=== PATIENT | male | born 1955 | race Caucasian/White ===

== ENCOUNTER 2019-08-28 22:09 | Emergency (ER) | payer BC ==
[2019-08-28] MEDS ORDERED: Sodium Chloride 0.9% 10 ML Syringe FLUSH PRN (23:53)
--- NOTE | 2019-08-28 23:54 | EDM.PDOC ---
ED HPI GENERAL MEDICAL PROBLEM - General Chief Complaint: Cardiovascular Problem Stated Complaint: A FIB Time Seen by Provider: 08/28/19 23:25 Source of Information: Reports: Patient History Limitations: Reports: No Limitations - History of Present Illness INITIAL COMMENTS - FREE TEXT/NARRATIVE: 63-year-old male who reports that at approximately 10 PM tonight he was walking to the hotel room to change clothes and he felt a slight discomfort in his left chest and a feeling that "something was not right" and a feeling of irregular and fast heartbeat. He rated the discomfort in his chest as a 4/10. It was a tight kind of discomfort and a feeling of irregular heartbeats. He had no neck pain, jaw pain or arm pain. He had no nausea or vomiting. He had no difficulty breathing. He has had this happen 2 other times in the past with the first episode being in November 2018 and the second episode being 2 weeks ago. Each time he was in atrial fibrillation and he reports that he was given medicine in his IV that caused him to "go back into a normal rhythm". He apparently is followed through [facility] in [facility] and he was for the [facility] in [place] after the first episode and had a fairly complete workup that was essentially negative. He was on Eliquis for about a 2 month period and was taken off of this medication because he did not go into atrial fibrillation during that time. About 2 weeks ago he [place] and it occurred. He is on no new medication. He cannot think of anything that may have caused this tonight. There are no other associated signs or symptoms. There are no other modifying factors. Onset: Today (10 PM) Duration: Constant Location: Reports: Chest Quality: Reports: Pressure, Other (Tightness) Severity: Mild Improves with: Reports: None Worsens with: Reports: None Context: Reports: Other (As above) Associated Symptoms: Reports: No Other Symptoms (Except as described above) Treatments [employer]: Reports: Other (see below) (Nothing) - Related Data Allergies Allergy/AdvReac Type Severity Reaction Status Date / Time No Known Allergies Allergy Verified 08/28/19 22:36 Home Meds: Home Meds Aspirin 1 tab PO DAILY 08/28/19 [History] Losartan/Hydrochlorothiazide [Losartan-HCTZ 100-25 MG] 1 tab PO DAILY 08/28/19 [ History] Metoprolol Succinate [Toprol XL 100mg] 100 mg PO DAILY 08/28/19 [History] Nilotinib HCl [Tasigna] 2 tab PO BID 08/28/19 [History] amLODIPine/atorvaSTATin [Amlodipine-Atorvast 5-10 mg] 5 mg PO DAILY 08/28/19 [ History] Potassium Chloride [K-Tab ER] 20 meq PO BID 3 Days #6 tablet.er 08/29/19 [Rx] Past Medical History Cardiovascular History: Reports: Arrhythmia (Paroxysmal atrial fibrillation), Hypertension Genitourinary History: Reports: Renal Calculus Oncologic (Cancer) History: Reports: Leukemia (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 the past 6 years.) - Past Surgical History GI Surgical History: Reports: Hernia, Inguinal (Left) Social & Family History - Tobacco Use Smoking Status *Q: Never Smoker Second Hand Smoke Exposure: No - Caffeine Use Caffeine Use: Reports: None - Alcohol Use Alcohol Use History: Yes Alcohol Use Frequency: Rarely - Recreational Drug Use Recreational Drug Use: No - Living Situation & Occupation Living situation: Reports: , with Family Occupation: Employed (He is a FIELD MECHANIC/SITE LEAD.) Social History Comment: He lives in [facility] GENERAL - Review of Systems Review Of Systems: See Below Constitutional: Reports: No Symptoms HEENT: Reports: No Symptoms Respiratory: Reports: No Symptoms Cardiovascular: Reports: Chest Pain, Other (Irregular heartbeat and fast heartbeat) Endocrine: Reports: No Symptoms GI/Abdominal: Reports: No Symptoms : Reports: No Symptoms Musculoskeletal: Reports: No Symptoms Skin: Reports: No Symptoms Neurological: Reports: No Symptoms Hematologic/Lymphatic: Reports: No Symptoms Immunologic: Reports: No Symptoms ED EXAM, GENERAL - Physical Exam Exam: See Below Exam Limited By: No Limitations General Appearance: Alert, WD/WN, Anxious (Slightly), Mild Distress Eye Exam: Bilateral Eye: EOMI, Normal Inspection Ears: Normal External Exam, Hearing Grossly Normal Ear Exam: Bilateral Ear: Auricle Normal Nose: Normal Inspection, Normal Mucosa, No Blood Throat/Mouth: Normal Inspection, Normal Lips, Normal Oropharynx, Normal Voice, No Airway Compromise Head: Atraumatic, Normocephalic Neck: Normal Inspection, Supple, Non-Tender, Full Range of Motion Respiratory/Chest: No Respiratory Distress, Lungs Clear, Normal Breath Sounds, No Accessory Muscle Use, Chest Non-Tender Cardiovascular: Normal Peripheral Pulses, No JVD, No Murmur, Tachycardia, Irregularly Irregular Peripheral Pulses: 2+: Radial (L), Radial (R) GI/Abdominal: Normal Bowel Sounds, Soft, Non-Tender, No Mass Extremities: Normal Inspection, Normal Range of Motion, Non-Tender, No Pedal Edema, Normal Capillary Refill Neurological: Alert, Oriented, CN II-XII Intact, Normal Gait, No Motor/Sensory Deficits Psychiatric: Normal Affect Skin Exam: Warm, Dry, Intact, Normal Color, No Rash Course - Vital Signs Last Recorded V/S: Last Vital Signs Temp 36.4 C 08/28/19 22:20 Pulse 123 H 08/28/19 22:20 Resp 18 08/28/19 22:20 BP 174/107 H 08/28/19 22:20 Pulse Ox 100 08/28/19 22:20 - Orders/Labs/Meds Orders: Active Orders 24 hr Category Date Time Status EKG Documentation Completion [RC] ASDIRECTED Care 08/28/19 23:54 Active EKG Documentation Completion [RC] ASDIRECTED Care 08/29/19 00:51 Active Procainamide 1 gm Med 08/29/19 01:00 Active Dextrose 5% in Water 50 ml IV NOW Sodium Chloride 0.9% [Saline Flush] Med 08/28/19 23:53 Active 10 ml FLUSH ASDIRECTED PRN Peripheral IV Insertion Adult [OM.PC] Routine Oth 08/28/19 23:53 Ordered EKG 12 Lead [EK] Routine Ther 08/28/19 23:53 Ordered EKG 12 Lead [EK] Routine Ther 08/29/19 00:51 Ordered Medication Orders Procainamide HCl 1 gm/ (Dextrose/Water) 52 mls @ 52 mls/hr IV NOW ONE Stop: 08/29/19 01:59 Sodium Chloride (Saline Flush) 10 ml FLUSH ASDIRECTED PRN PRN Reason: Keep Vein Open Labs: Laboratory Tests 08/28/19 08/28/19 08/28/19 Range/Units 23:53 23:53 23:53 WBC 5.7 (4.5-12.0) X10-3/uL RBC 5.47 (4.30-5.75) x10(6)uL Hgb 16.6 (13.5-17.8) g/dL Hct 48.7 (30.0-51.3) % MCV 88.9 (80-96) fL MCH 30.3 (27.7-33.6) pg MCHC 34.1 (32.2-35.4) g/dL RDW 12.4 (11.5-15.5) % Plt Count 253 (125-369) X10(3)uL MPV 7.9 (7.4-10.4) fL Neut % (Auto) 65.9 (46-82) % Lymph % (Auto) 23.0 (13-37) % Bradford % (Auto) 7.9 (4-12) % Eos % (Auto) 3 (1.0-5.0) % Baso % (Auto) 1 (0-2) % Neut # (Auto) 3.8 (1.6-8.3) # Lymph # (Auto) 1.3 (0.6-5.0) # Bradford # (Auto) 0.5 (0.0-1.3) # Eos # (Auto) 0.1 (0.0-0.8) # Baso # (Auto) 0.0 (0.0-0.2) # PT 9.3 (8.7-11.1) INR 0.96 (0.89-1.13) Sodium 147 H (135-145) mmol/L Potassium 3.3 L (3.5-5.3) mmol/L Chloride 106 (100-110) mmol/L Carbon Dioxide 29 (21-32) mmol/L BUN 15 (7-18) mg/dL Creatinine 1.1 (0.70-1.30) mg/dL Est Cr Clr Drug Dosing 65.10 mL/min Estimated GFR (MDRD) > 60 (>60) BUN/Creatinine Ratio 13.6 (9-20) Glucose 97 (80-116) mg/dL Calcium 9.2 (8.6-10.2) mg/dL Magnesium 2.3 (1.8-2.5) mg/dL Total Bilirubin 0.5 (0.1-1.3) mg/dL AST 23 (5-25) IU/L ALT 47 H (12-36) U/L Alkaline Phosphatase 75 (56-112) IU/L Total Protein 7.1 (6.0-8.0) g/dL Albumin 3.9 (3.2-4.6) g/dL Globulin 3.2 g/dL Albumin/Globulin Ratio 1.2 Meds: Medications Generic Name Dose Route Start Last Admin Trade Name Matt PRN Reason Stop Dose Admin Procainamide HCl 1 gm/ 52 mls @ 52 mls/hr 08/29/19 01:00 Dextrose/Water IV 08/29/19 01:59 NOW ONE Sodium Chloride 10 ml 08/28/19 23:53 Saline Flush FLUSH ASDIRECTED PRN Keep Vein Open Discontinued Medications Generic Name Dose Route Start Last Admin Trade Name Jatinderq PRN Reason Stop Dose Admin Potassium Chloride 40 meq 08/29/19 00:11 08/29/19 00:14 Klor-Con M20 PO 08/29/19 00:12 40 meq ONETIME ONE Administration Procainamide HCl 1 gm 08/29/19 00:38 Procainamide IV 08/29/19 00:39 ASDIRECTED ONE - Re-Assessments/Exams Free Text/Narrative Re-Assessment/Exam: 08/29/19 00:40: The patient's blood tests were reassuring except for a slightly low potassium at 3.3. He had normal kidney function. His initial EKG did show atrial fibrillation with RVR. As I was going in to the room to reevaluate the patient and after I had preliminarily ordered procainamide 1 g to be given IV, I noticed that the patient's heart rate was in the 70s and on closer inspection , the appeared to be in a normal sinus rhythm. The patient was completely symptom free. He felt much improved. He had no chest discomfort or abnormal feeling in his chest. 08/29/19 01:10: Repeat EKG shows normal sinus rhythm. The patient is completely symptom free. We will ambulate the patient and if there are no problems, the plan will be to discharge the patient with a prescription for supplemental potassium for the next 3 days and for follow-up with his doctor when he gets back to [facility] in regard to his low potassium and to the atrial fibrillation Departure - Departure Time of Disposition: 01:15 Disposition: Home, Self-Care 01 Condition: Good (Improved) Clinical Impression: Paroxysmal atrial fibrillation, Hypokalemia Prescriptions: Potassium Chloride [K-Tab ER] 20 meq PO BID 3 Days #6 tablet.er Instructions: Potassium chloride tablets, extended-release tablets or capsules , Hypokalemia, Atrial Fibrillation, [id number] Referrals: PCP,None [Primary Care Provider] - Forms: ED Department Discharge Additional Instructions: Your blood tests were all reassuringly normal except for a slightly low potassium. Your magnesium was okay as well. Your initial EKG showed atrial fibrillation. While in the emergency department, you spontaneously converted back to normal sinus rhythm. I am giving you a prescription of potassium to take for the next 3 days. He should rest and avoid any strenuous activity for the next 2 days and until cleared by your doctor. Continues to drink plenty of fluids. Avoid any stimulants like caffeine or energy drinks or chocolate. Medication as prescribed (potassium chloride tablets 20 mEq). Follow-up with your doctor in the next few days in regard to your atrial fibrillation and your low potassium. You will need to have your potassium rechecked by the middle of this coming week. Back to the emergency department for recurrent fast heart rate , trouble breathing, chest pain, nausea or vomiting, weakness or dizziness or any other concerning sign or symptom. - My Orders Last 24 Hours: My Active Orders 08/28/19 23:53 Sodium Chloride 0.9% [Saline Flush] 10 ml FLUSH ASDIRECTED PRN Peripheral IV Insertion Adult [OM.PC] Routine EKG 12 Lead [EK] Routine 08/28/19 23:54 EKG Documentation Completion [RC] ASDIRECTED 08/29/19 00:51 EKG Documentation Completion [RC] ASDIRECTED EKG 12 Lead [EK] Routine 08/29/19 01:00 Procainamide 1 gm Dextrose 5% in Water 50 ml IV NOW - Assessment/Plan Last 24 Hours: My Active Orders 08/28/19 23:53 Sodium Chloride 0.9% [Saline Flush] 10 ml FLUSH ASDIRECTED PRN Peripheral IV Insertion Adult [OM.PC] Routine EKG 12 Lead [EK] Routine 08/28/19 23:54 EKG Documentation Completion [RC] ASDIRECTED 08/29/19 00:51 EKG Documentation Completion [RC] ASDIRECTED EKG 12 Lead [EK] Routine 08/29/19 01:00 Procainamide 1 gm Dextrose 5% in Water 50 ml IV NOW
[2019-08-29] MEDS ORDERED: Potassium Chloride 20 MEQ Tab.ER PO ONE (00:11)
[2019-08-29] MEDS ORDERED: PROCAINAMIDE 500 MG/ML IV ONE (00:38)
[2019-08-29] MEDS ORDERED: WATER IV ONE ×2 (01:00)
[2019-08-29] MEDS ORDERED: PROCAINAMIDE IV ONE ×2 (01:00)
[2019-08-29] MEDS ORDERED: DEXTROSE 5% IV ONE ×2 (01:00)
== END 2019-08-29 01:35 | disposition home or self-care (01) ==
LOC: FB.ED 22:09
DX: I48.0 Paroxysmal atrial fibrillation (principal); E87.6 Hypokalemia; I10 Essential (primary) hypertension; Z79.82 Long term (current) use of aspirin; Z79.899 Other long term (current) drug therapy
CPT/HCPCS: 36415; 80053; 83735; 85025; 85610; 93005; 99285; A9270